=== PATIENT | female | born 1985 | race Caucasian/White ===

== ENCOUNTER 2016-12-22 17:18 | Inpatient (IN) | payer OTHER ==
--- NOTE | ~2016-12-22 | DS ---
Discharge Summary [facility] [address] [place]. [address] NAME: SUYAPA GARRETT : 85 STATUS : DIS IN PAT#: [id number] AGE: 31 ADM/REG DATE : 12/22/16 MR#: [id number] REPORT SERV DATE: 12/26/16 DICTATED BY: DATE: REPORT STATUS : Draft TRANSCRIBED BY: MODL DATE: 12/25/16 ADMISSION DATE: 12/22/2016 DISCHARGE DATE: 12/25/2016 The patient was admitted to the [facility] Hospitalist Service. JITTERBUG OPERATOR: Dr. Gerardo Hudson of Orthopedics and Dr. Bean Cooper of Infectious Disease. DISCHARGE DIAGNOSES: 1. Left hand and wrist cellulitis - without evidence of abscess or septic arthritis or tenosynovitis this admission. Status post Zosyn, Levaquin, and vancomycin during hospitalization, with improvement. To complete an additional seven days of clindamycin as an outpatient. 2. History of IV drug use. 3. History of polysubstance abuse. 4. Tobacco dependence. 5. Sepsis, present at admission due to cellulitis - resolved. 6. Anemia. IMAGING: Included plain films of the left wrist and left hand demonstrating mild soft tissue swelling, but no evidence of abscess or foreign body. PERTINENT LABS: Blood cultures x2, no growth. White blood cell count at admission 11.5 and 6.1 at discharge. Lactate 1.5. Urinalysis negative. Urine HCG negative. Urine drug screen positive for amphetamines, cannabinoids, and opiates. Procalcitonin 0.05. BRIEF HISTORY: For full details, please see the previously dictated history of present illness by Dr. Nile Holly. This is a 31-year-old white female with history of polysubstance abuse, who states she has recently been "dabbling" in methamphetamine. It is unclear whether she injected drugs into the left wrist, or how a left wrist infection developed, but she had been seen at [facility] several days prior to this admission where she was diagnosed with cellulitis and placed on an oral antibiotic, which she could not afford and so she did not take. She came to [facility] with progression in her wrist pain, redness, fevers, and she was admitted to our hospitalist service for management. She did meet sepsis criteria at the time of admission. HOSPITAL COURSE: The patient was admitted to [address] [place] [address] and placed on empiric IV vancomycin and Zosyn. Consultations were obtained from Orthopedics and Infectious Disease. Infectious Disease changed her antibiotics to Levaquin and vancomycin, and eventually discontinued the Levaquin and treated with vancomycin monotherapy. Blood cultures were negative and imaging of the left hand and wrist did not demonstrate any deep tissue infection. Orthopedics did not see a need for any type of incision and drainage or surgical management this admission. The patient's wrist and hand improved dramatically with antibiotics. Her erythema was resolved at the time of discharge and her edema was improving, although still somewhat slightly persistent. She did continue to have a little bit of pain with range of motion, Discharge Summary [place] [id number] [facility] [place]. [address] NAME: SUYAPA GARRETT : 85 STATUS : DIS IN PAT#: [id number] AGE: 31 ADM/REG DATE : 12/22/16 MR#: [id number] REPORT SERV DATE: 12/26/16 DICTATED BY: DATE: REPORT STATUS : Draft TRANSCRIBED BY: MODL DATE: 12/25/16 but improved from prior, without any evidence of compartment syndrome. She thus is felt appropriate for discharge home to complete an additional seven days of oral clindamycin. She is encouraged to treat her pain with Advil and is given a small quantity of hydrocodone for discharge as well. She should keep the arm elevated in a sling during the day and should prop it up on pillows to keep it above the level of the heart when sleeping. The patient is unclear where she will receive her followup as she states an intention potentially to return to [place] this week. She understands the importance of seeing another physician within one to two weeks for re-evaluation of the wrist, and the importance of returning to the emergency department if her symptoms recur, worsen, or progress despite oral antibiotic therapy. She was provided with a work excuse and is unable to return to work until January 01. DISCHARGE DISPOSITION: To home in the care of family with no specific activity or dietary restrictions aside from utilizing the sling and elevating the arm as above. FOLLOWUP: Follow up with primary care provider of her choosing within the next one to two weeks. If she remains in [place], appointment has been arranged for her at the [facility]. DISCHARGE MEDICATIONS: 1. Clindamycin 300 mg p.o. four times a day for seven days. 2. Advil 600 mg p.o. every eight hours. 3. Hydrocodone/acetaminophen 10/325 mg p.o. every eight hours. 20 tablets dispensed with no refills. 30 minutes was spent on the discharge. DICTATED BY: Silver Cuevas/SAMANTHA Jonathan Monreal M.D. / [id number] CC: Jonathan Monreal M.D. [facility]
--- NOTE | ~2016-12-22 | CN ---
Consultation Report [facility] [address] [place]. [address] NAME: SUYAPA GARRETT : 85 STATUS : ADM Elizabeth PAT#: [id number] AGE: 31 ADM/REG DATE : 12/22/16 MR#: [id number] REPORT SERV DATE: 12/23/16 DICTATED BY: SARAH COOPER DATE: 12/23/16 REPORT STATUS : Draft TRANSCRIBED BY: MODL DATE: 12/23/16 INFECTIOUS DISEASE CONSULT DATE OF CONSULTATION: 12/23/2016 REASON FOR CONSULTATION: Left hand cellulitis. HISTORY OF PRESENT ILLNESS: This is a 31-year-old female, who is a somewhat poor historian, but relates a long history of picking under skin with resultant skin lesions, some of which sometimes become infected. She also is a polysubstance abuser, most recently, methamphetamine. She denies though injection drug use. She states that a few days ago, she started getting pain, swelling, and redness of her left hand and wrist area, and went to the emergency department at [facility], where apparently she received some antibiotics and a prescription for oral antibiotics, but she did not get it filled. She continued to have the same problems and presented to the emergency room at [facility] late yesterday afternoon where she had a temperature of 100, white blood cell count of 11.5, and cellulitis changes of the left hand and wrist, along with multiple lesions over much of her body, some of which looked somewhat inflamed. Blood cultures were obtained, and she was started on antibiotics with vancomycin and Zosyn. The patient was evaluated by Dr. Hudson of Orthopedics earlier this morning, and he has elevated the hand and wrist using a stockinette. The patient says actually things felt better this afternoon. PAST MEDICAL HISTORY: Otherwise, unremarkable. ALLERGIES: NO KNOWN DRUG ALLERGIES. PRESENT MEDICATIONS: In addition to vancomycin and Zosyn include Motrin and Protonix and subcutaneous heparin and other analgesics. OUTPATIENT MEDICATIONS: She was not on any outpatient medications. SOCIAL HISTORY: Long-term smoker and also uses marijuana. She has also used opiates. The patient told Dr. Holly that she used methamphetamine two days ago. FAMILY HISTORY: Noncontributory. REVIEW OF SYSTEMS: Otherwise, negative. No chest pain, shortness of breath, nausea, vomiting, or diarrhea. PHYSICAL EXAMINATION: VITAL SIGNS: The patient weighs 66 kg. She has been afebrile. Blood pressure 110/71, pulse 70, was as high as 100, respiratory rate 14. GENERAL: She is somewhat sleepy, but cooperative. HEAD AND NECK: Shows a clear oral cavity without thrush. Consultation Report [facility] [address] [address] NAME: SUYAPA GARRETT : 85 STATUS : ADM Elizabeth PAT#: [id number] AGE: 31 ADM/REG DATE : 12/22/16 MR#: [id number] REPORT SERV DATE: 12/23/16 DICTATED BY: SARAH COOPER DATE: 12/23/16 REPORT STATUS : Draft TRANSCRIBED BY: SAMANTHA DATE: 12/23/16 NECK: Supple. LUNGS: Clear to auscultation anteriorly. CARDIAC: Regular rate and rhythm. Normal S1, S2 without murmur, gallop, or rub. ABDOMEN: Soft, nontender, and nondistended. EXTREMITIES: The patient's left hand and wrist have mild diffuse edema and somewhat patchy erythema and warmth. She states she has good passive range of motion at the wrist without significant pain. She also has pretty good passive range of motion of her fingers without significant pain noted. Palpation over her joints on the hand and over the wrist has mild tenderness to palpation, but not severe. SKIN: Just shows again these multiple shallow skin lesions on her extremities and to a lesser degree, on her trunk. She has a peripheral IV in her right antecubital fossa. LABORATORY STUDIES: White blood cell count today is 9.1, hemoglobin 12.1, and platelets 165. Creatinine 0.52. Liver function tests normal. Procalcitonin 0.05. Urinalysis negative. X-ray of the left hand and wrist without significant findings. IMPRESSION: Cellulitis of the left hand and wrist. The exam at present is not really suspicious for a septic arthritis or tenosynovitis. PLAN: 1. We will continue vancomycin. 2. I doubt this is a gram-negative [place] infection, but pending blood culture results, I will change the Zosyn to oral Levaquin. 3. Continue elevation and reassess tomorrow. JOSE JUAN/SAMANTHA Sarah Cooper M.D. / [id number] CC: Jonathan Monreal M.D.
--- NOTE | ~2016-12-22 | HP ---
History And Physical [place] [id number] [facility] [place]. [address] NAME: SUYAPA ALAMO : 85 STATUS : ADM Elizabeth PAT#: [id number] AGE: 31 ADM/REG DATE : 12/22/16 MR#: [id number] REPORT SERV DATE: 12/23/16 DICTATED BY: NILE CASTRO DATE: 12/22/16 REPORT STATUS : Draft TRANSCRIBED BY: MODL DATE: 12/22/16 DATE OF ADMISSION: 12/22/2016 CHIEF COMPLAINT: Pain and swelling in her left hand. HISTORY OF PRESENT ILLNESS: This is a 31-year-old female, who has no past medical history, is a polysubstance abuser, who presents to the emergency room at [facility] with the above-mentioned complaint. History is obtained from the patient and reviewing data available on the [employer] system. According to Ms. Alamo, she was in her usual state of health until about two days ago, when she started having pain in her left wrist. It felt like she had to crack her wrist and she tried several times in vain. The pain and stiffness continued and during the course of the day, she started seeing swelling in her hand and by the end of the day, it became very painful. She then went to the ER at [facility], where she was worked up and she wanted to go home. They gave her a shot of antibiotic, unknown at this time and prescription for oral outpatient antibiotic therapy. The patient could not afford to fill the prescription and so did not. Today, the pain became unbearable and she decided to come here to the emergency room. In the emergency room, she appeared to have cellulitis of the left hand and Hospitalist Service is asked to admit her for IV antibiotics and further evaluation. At the time of my evaluation, she denied any chest pain, palpitations, or orthopnea. She has had no cough, hemoptysis, night sweats, or weight loss. She denied any fevers, chills, nausea, vomiting, diarrhea, recent falls, or loss of consciousness. She denied any dysuria, hematemesis, hematochezia, or hematuria. No other history of recent travel or exposures, other than those mentioned above. PAST MEDICAL HISTORY: She has no significant past medical history. SOCIAL HISTORY: She smokes, has a [id number] history of smoking, uses marijuana, methamphetamine, and opiates on a regular basis. She used methamphetamine yesterday. FAMILY HISTORY: Noncontributory. MEDICATIONS: At home were reviewed by me in the chart today, which is none. REVIEW OF SYSTEMS: As in history of present illness. All other systems were reviewed in detail and are quite unremarkable. PHYSICAL EXAMINATION: GENERAL: This is a pleasant 31-year-old, in quite some distress due to pain in her hand. HEENT: Her head is atraumatic, normocephalic. She is alert, awake, oriented to time, place, and person. Her pupils are equal, reacting to light and accommodating. External ocular History And Physical [address] [address] NAME: SUYAPA ALAMO : 85 STATUS : ADM Elizabeth PAT#: [id number] AGE: 31 ADM/REG DATE : 12/22/16 MR#: [id number] REPORT SERV DATE: 12/23/16 DICTATED BY: NILE CASTRO DATE: 12/22/16 REPORT STATUS : Draft TRANSCRIBED BY: SAMANTHA DATE: 12/22/16 muscles are intact. Membranes are moist and pink, but she has excoriations of the skin all over her body, which she states is secondary to pruritus and she starts picking on her skin. She has excoriations in her face, hands, all over her body, including her lower extremities. Some of these have some ongoing infection as well. Sclerae are nonicteric. NECK: Supple. No jugular venous distention, lymphadenopathy, or thyromegaly. LUNGS: Clear to auscultation with no wheezes, rubs, or crackles. HEART: Heart sounds were regular with no murmurs, rubs, or gallops appreciated. ABDOMEN: Soft and nontender. Bowel sounds are present. EXTREMITIES: Showed no cyanosis, clubbing, or edema. NEUROLOGIC: Grossly intact. No focal sensory or motor deficits. She was able to move all four extremities. Higher functions appeared intact. VITAL SIGNS: Her temperature today was 98.9, pulse 100, respirations 20 a minute, blood pressure was 121/70, oxygen saturations were 99% on room air. LABORATORY DATA: Reviewed on the [employer] system showed a sodium of 140, potassium 3.3, chloride 105, and CO2 of 28. BUN was 9 with a creatinine of 0.67 and glucose was 160. Serum tox screen was negative. Lactate was 1.5. CBC showed a white blood cell count of 11,500. Normal hemoglobin, hematocrit, and platelet count. Urinalysis was grossly unremarkable. Urine drug screen was positive for amphetamines, cannabinoids, and opiates. Films of the x-ray of the left hand and wrist were reviewed by me on the PACS today. Per my interpretation, I did not see any soft tissue abscesses or involvement of the bone. Official radiology report will be forthcoming. IMPRESSION: 1. Left hand pain. 2. Cellulitis of the left hand with possible compartment syndrome or septic arthritis. 3. Polysubstance abuse. 4. Sepsis by criteria. PLAN: We will admit Mrs. Alamo to the Hospitalist Service with telemetry monitoring for a 24-hour observation period. After cultures are drawn, we will start her on empiric IV antibiotics. We will start her on vancomycin and Zosyn at this time. We will get ID consultation in the morning. We will start her on aggressive IV fluids for her sepsis and monitor her closely. We will also establish pain control, given her hydrocodone orally and low-dose Dilaudid for any severe pain. We will also put her on NSAIDs for a 24-hour period. We will also consult orthopedic hand surgeon for evaluation for septic arthritis and/or compartment syndrome. We will place her on unfractionated heparin for DVT prophylaxis while here. I have discussed the above plans with the patient. Her questions were answered and she is agreeable to the above recommendations. Please see today's orders for details. Hospitalist Service will be following her during her stay here. MR/MODL Nile Castro, History And Physical [address] [place]. [address] NAME: SUYAPA ALAMO : 85 STATUS : ADM Elizabeth PAT#: [id number] AGE: 31 ADM/REG DATE : 12/22/16 MR#: [id number] REPORT SERV DATE: 12/23/16 DICTATED BY: NILE CASTRO DATE: 12/22/16 REPORT STATUS : Draft TRANSCRIBED BY: SAMANTHA DATE: 12/22/16 Silver / [id number] CC: Jonathan Monreal M.D.
[2016-12-22 18:19] LABS: BASOPHILS 0.2 %; BASOPHILS ABSOLUTE 0.02 10/3/uL (0.0-0.16); EOSINOPHILS 0.5 %; EOSINOPHILS ABSOLUTE 0.06 10/3/uL (0.0-0.53); HEMATOCRIT 42.8 % (36.0-48.0); HEMOGLOBIN 14.3 g/dL (12.0-16.0); IMMATURE GRANULOCYTES 0.3 %; IMMATURE GRANULOCYTES ABSOLUTE 0.03 10/3/uL (0.0-0.11); LYMPHOCYTES 11.2 %; LYMPHOCYTES ABSOLUTE 1.29 10/3/uL (0.67-4.30); MEAN CORPUS HGB CONC 33.4 g/dL (32.0-36.0); MEAN CORPUSCULAR HEMOGLOB 30.4 pg (26.0-34.0); MEAN CORPUSCULAR VOLUME 90.9 fL (80-100); MEAN PLATELET VOLUME 9.8 fL (9.2-13.0); MONOCYTES 10.8 %; MONOCYTES ABSOLUTE 1.24 10/3/uL (0.21-1.20); NEUTROPHILS ABSOLUTE 8.83 10/3/uL (2.02-8.40); PLATELET COUNT 187 10/3/uL (150-400); RBC DISTRIBUTION WIDTH 13.2 % (12.0-16.0); RED CELL COUNT 4.71 10/6/uL (4.0-5.6); WHITE BLOOD CELLS 11.5 10/3/uL (4.5-10.5)
[2016-12-22 18:20] LABS: MANUAL DIFF NO %
[2016-12-22 18:37] LABS: A/G RATIO 0.9 (0.7-1.9); ALBUMIN 3.6 G/DL (3.5-5.0); ALKALINE PHOSPHATASE 77 U/L (45-117); BUN (BLOOD UREA NITROGEN) 9 MG/DL (6-23); CALCIUM, SERUM 8.7 MG/DL (8.5-10.4); CHLORIDE, SERUM 105 MMOL/L (96-112); CO2 (CARBON DIOXIDE) 28 MMOL/L (24-34); CREATININE 0.67 MG/DL (0.55-1.02); GFR AFRICAN AMERICAN 136 ML/MIN (>=60); GFR NON AFRICAN AMERICAN 117 ML/MIN (>=60); GLOBULIN 3.9 G/DL (2.5-4.1); GLUCOSE, SERUM 160 MG/DL (60-99); POTASSIUM, SERUM 3.3 MMOL/L (3.5-5.3); SALICYLATE 2.4 MG/DL (-); SGOT(AST) 16 U/L (5-40); SGPT(ALT) 21 U/L (5-65); SODIUM, SERUM 140 MMOL/L (135-148); TOTAL BILIRUBIN 0.9 MG/DL (0-1.2); TOTAL PROTEIN 7.5 G/DL (6.0-8.5)
[2016-12-22 18:42] LABS: ALCOHOL < 10 MG/DL (0)
[2016-12-22 18:43] LABS: ACETAMINOPHEN LEVEL (TYLENOL) < 2.0 MCG/ML (10.0-20.0)
[2016-12-22 18:53] LABS: ASCORBIC ACID (UR NOT ORDER) NEG (NEG); BILIRUBIN, URINE NEGATIVE (NEG); ER URINALYSIS TAT 0 Hrs 18 Mins; KETONE, URINE 20 MG/DL (NEG); LEUKOCYTE ESTERASE(NOT OR NEG (NEG); NITRITE (URINE) NEG (NEG); WBC (NOT ORDERED) (RFLEX) 1 (0-5)
[2016-12-22 19:13] LABS: AMPHETAMINES (NOT ORD) POS (NEG); BARBITURATES (NOT ORDERED NEG (NEG); BENZODIAZEPINES (NOT ORD) NEG (NEG); CANNABINOIDS (THC) POS (NEG); COCAINE (NOT ORDERED) NEG (NEG); OPIATES POS (NEG); PHENCYCLIDINE(PCP) NEG (NEG); TRICYCLICS NEG (NEG)
[2016-12-22] MEDS ORDERED: *DENIES (19:25)
[2016-12-22 20:29] LABS: PROCALCITONIN 0.05 ng/mL (<0.5)
[2016-12-23 08:14] LABS: BASOPHILS 0.1 %; BASOPHILS ABSOLUTE 0.01 10/3/uL (0.0-0.16); EOSINOPHILS 1.5 %; EOSINOPHILS ABSOLUTE 0.14 10/3/uL (0.0-0.53); HEMOGLOBIN 12.1 g/dL (12.0-16.0); IMMATURE GRANULOCYTES 0.3 %; IMMATURE GRANULOCYTES ABSOLUTE 0.03 10/3/uL (0.0-0.11); LYMPHOCYTES 19.1 %; LYMPHOCYTES ABSOLUTE 1.74 10/3/uL (0.67-4.30); MEAN CORPUS HGB CONC 33.4 g/dL (32.0-36.0); MEAN CORPUSCULAR HEMOGLOB 30.7 pg (26.0-34.0); MEAN CORPUSCULAR VOLUME 91.9 fL (80-100); MEAN PLATELET VOLUME 9.8 fL (9.2-13.0); MONOCYTES 9.2 %; MONOCYTES ABSOLUTE 0.84 10/3/uL (0.21-1.20); NEUTROPHILS 69.8 %; NEUTROPHILS ABSOLUTE 6.33 10/3/uL (2.02-8.40); PLATELET COUNT 165 10/3/uL (150-400); RBC DISTRIBUTION WIDTH 13.1 % (12.0-16.0); RED CELL COUNT 3.94 10/6/uL (4.0-5.6); WHITE BLOOD CELLS 9.1 10/3/uL (4.5-10.5)
[2016-12-23 08:16] LABS: HEMATOCRIT 36.2 % (36.0-48.0)
[2016-12-23 08:17] LABS: MANUAL DIFF NO %
[2016-12-23 08:27] LABS: BUN (BLOOD UREA NITROGEN) 10 MG/DL (6-23); CALCIUM, SERUM 7.9 MG/DL (8.5-10.4); CHLORIDE, SERUM 107 MMOL/L (96-112); CO2 (CARBON DIOXIDE) 28 MMOL/L (24-34); CREATININE 0.52 MG/DL (0.55-1.02); GFR AFRICAN AMERICAN 148 ML/MIN (>=60); GFR NON AFRICAN AMERICAN 127 ML/MIN (>=60); GLUCOSE, SERUM 100 MG/DL (60-99); PHOSPHORUS, SERUM 2.8 MG/DL (2.5-4.5); POTASSIUM, SERUM 3.7 MMOL/L (3.5-5.3); SODIUM, SERUM 138 MMOL/L (135-148)
[2016-12-24 05:11] LABS: BASOPHILS 0.1 %; BASOPHILS ABSOLUTE 0.01 10/3/uL (0.0-0.16); EOSINOPHILS 0.9 %; EOSINOPHILS ABSOLUTE 0.06 10/3/uL (0.0-0.53); HEMOGLOBIN 10.8 g/dL (12.0-16.0); IMMATURE GRANULOCYTES 0.1 %; IMMATURE GRANULOCYTES ABSOLUTE 0.01 10/3/uL (0.0-0.11); LYMPHOCYTES 25.3 %; LYMPHOCYTES ABSOLUTE 1.77 10/3/uL (0.67-4.30); MEAN CORPUS HGB CONC 33.2 g/dL (32.0-36.0); MEAN CORPUSCULAR HEMOGLOB 30.6 pg (26.0-34.0); MEAN CORPUSCULAR VOLUME 92.1 fL (80-100); MEAN PLATELET VOLUME 10.6 fL (9.2-13.0); MONOCYTES 10.3 %; MONOCYTES ABSOLUTE 0.72 10/3/uL (0.21-1.20); NEUTROPHILS 63.3 %; NEUTROPHILS ABSOLUTE 4.42 10/3/uL (2.02-8.40); PLATELET COUNT 168 10/3/uL (150-400); RBC DISTRIBUTION WIDTH 13.3 % (12.0-16.0); RED CELL COUNT 3.53 10/6/uL (4.0-5.6)
[2016-12-24 05:12] LABS: HEMATOCRIT 32.5 % (36.0-48.0); MANUAL DIFF NO %
[2016-12-24 05:27] LABS: BUN (BLOOD UREA NITROGEN) 10 MG/DL (6-23); CALCIUM, SERUM 7.3 MG/DL (8.5-10.4); CHLORIDE, SERUM 111 MMOL/L (96-112); CO2 (CARBON DIOXIDE) 25 MMOL/L (24-34); CREATININE 0.42 MG/DL (0.55-1.02); GFR AFRICAN AMERICAN 158 ML/MIN (>=60); GFR NON AFRICAN AMERICAN 137 ML/MIN (>=60); GLUCOSE, SERUM 80 MG/DL (60-99); SODIUM, SERUM 140 MMOL/L (135-148)
[2016-12-24 05:28] LABS: POTASSIUM, SERUM 3.9 MMOL/L (3.5-5.3)
[2016-12-25 10:00] LABS: BASOPHILS 0.3 %; BASOPHILS ABSOLUTE 0.02 10/3/uL (0.0-0.16); EOSINOPHILS 0.7 %; EOSINOPHILS ABSOLUTE 0.04 10/3/uL (0.0-0.53); HEMATOCRIT 33.2 % (36.0-48.0); HEMOGLOBIN 11.1 g/dL (12.0-16.0); IMMATURE GRANULOCYTES 0.2 %; IMMATURE GRANULOCYTES ABSOLUTE 0.01 10/3/uL (0.0-0.11); LYMPHOCYTES 19.2 %; LYMPHOCYTES ABSOLUTE 1.18 10/3/uL (0.67-4.30); MEAN CORPUS HGB CONC 33.4 g/dL (32.0-36.0); MEAN CORPUSCULAR HEMOGLOB 30.2 pg (26.0-34.0); MEAN CORPUSCULAR VOLUME 90.5 fL (80-100); MEAN PLATELET VOLUME 10.1 fL (9.2-13.0); MONOCYTES 10.6 %; MONOCYTES ABSOLUTE 0.65 10/3/uL (0.21-1.20); NEUTROPHILS ABSOLUTE 4.23 10/3/uL (2.02-8.40); PLATELET COUNT 170 10/3/uL (150-400); RBC DISTRIBUTION WIDTH 13.1 % (12.0-16.0); RED CELL COUNT 3.67 10/6/uL (4.0-5.6); WHITE BLOOD CELLS 6.1 10/3/uL (4.5-10.5)
[2016-12-25 10:01] LABS: MANUAL DIFF NO %
[2016-12-25] MEDS ORDERED: NORCO1 TAB PO (11:21)
[2016-12-25] MEDS ORDERED: CLEOCIN300 MG PO (11:21)
[2016-12-25] MEDS ORDERED: ADVIL BUC (11:40)
== END 2016-12-25 12:32 | disposition home or self-care (01) | DRG 872 ==
LOC: ER 17:18 → 4SO 20:16
PROVIDERS: Hospitalist; Internal Medicine Pulmonary Disease; Nurse Practitioner Acute Care
DX: A41.9 Sepsis, unspecified organism (principal); F11.10 Opioid abuse, uncomplicated; L03.114 Cellulitis of left upper limb; F17.210 Nicotine dependence, cigarettes, uncomplicated; F12.99 Cannabis use, unspecified with unspecified cannabis-induced disorder; F15.10 Other stimulant abuse, uncomplicated; L29.9 Pruritus, unspecified; F42.4 Excoriation (skin-picking) disorder; T36.96XA Underdosing of unspecified systemic antibiotic, initial encounter; Z91.120 Patient's intentional underdosing of medication regimen due to financial hardship
CPT/HCPCS: 73110-LT; 73130-LT; 80048; 80053; 80202; 80305; 80307; 81001; 83605; 83735; 84100; 84145; 84703; 85025; 87040; 96374; 99284; A9270-GY; J1170; J2405; J2543; J3370; J3475